=== PATIENT | female | born 2000 | race Caucasian/White ===

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

== ENCOUNTER 2020-09-04 16:33 | Emergency (ER) | payer OTHER ==
[~2020-09-04] VITALS: Ht 160 cm; Wt 105.7 kg
[2020-09-04] MEDS ORDERED: LIDOCAINE 1% 5ML-MPF INJ STA (17:26)
== END 2020-09-04 19:05 | disposition home or self-care (01) ==
LOC: ER 17:04
DX: L02.214 Cutaneous abscess of groin (principal); E28.2 Polycystic ovarian syndrome
CPT/HCPCS: 99283

== ENCOUNTER 2021-02-13 12:03 | Emergency (ER) | payer OTHER ==
[~2021-02-13] VITALS: Ht 160 cm; Wt 105.7 kg
[2021-02-13] MEDS ORDERED: KETOROLAC TROMETHAMINE 30 MG/ML VIAL IM STA (12:38)
[2021-02-13] MEDS ORDERED: GUAIFENESIN 600MG/DEXTROMETHORPHAN 30MG TABSR PO STA (12:38)
[2021-02-13] MEDS ORDERED: ACETAMINOPHEN 325 MG TAB PO ONE (12:45)
[2021-02-13 16:30] VITALS: BP 136/67
== END 2021-02-13 16:30 | disposition home or self-care (01) ==
LOC: ER 12:38
DX: J06.9 Acute upper respiratory infection, unspecified (principal); E28.2 Polycystic ovarian syndrome
CPT/HCPCS: 71046; 81025; 99283

== ENCOUNTER 2022-03-18 14:32 | Emergency (ER) | payer BC, OTHER ==
[~2022-03-18] VITALS: Ht 160 cm; Wt 115.7 kg
[2022-03-18] MEDS ORDERED: IBUPROFEN 600 MG TAB PO STA (14:37)
== END 2022-03-18 16:46 | disposition home or self-care (01) ==
LOC: ER 14:38
DX: S93.492A Sprain of other ligament of left ankle, initial encounter (principal); W01.0XXA Fall on same level from slipping, tripping and stumbling without subsequent striking against object, initial encounter; Y93.01 Activity, walking, marching and hiking; Y92.89 Other specified places as the place of occurrence of the external cause; E28.2 Polycystic ovarian syndrome
CPT/HCPCS: 99283

== ENCOUNTER 2023-01-04 10:46 | Emergency (ER) | payer SELFPAY ==
[~2023-01-04] VITALS: Ht 160 cm; Wt 118.4 kg
[2023-01-04] MEDS ORDERED: KETOROLAC TROMETHAMINE 30 MG/ML VIAL ONE (11:21)
[2023-01-04] MEDS ORDERED: ONDANSETRON HCL INJ 2MG/ML 2ML 2 MG/ML VIAL ONE (11:21)
[2023-01-04] MEDS ORDERED: SODIUM CHLORIDE 0.9% 1000ML 1,000 ML ONE (11:28)
[2023-01-04] MEDS ORDERED: BACTRIM DS TAB1 EACH PO (13:15)
[2023-01-04] MEDS ORDERED: CEFTRIAXONE 1 GM VIAL ONE (13:25)
[2023-01-04 13:42] VITALS: O2SAT 99
== END 2023-01-04 13:42 | disposition home or self-care (01) ==
LOC: FSED 11:07
DX: N39.0 Urinary tract infection, site not specified (principal); R11.2 Nausea with vomiting, unspecified; E28.2 Polycystic ovarian syndrome; I10 Essential (primary) hypertension; K76.0 Fatty (change of) liver, not elsewhere classified
CPT/HCPCS: 74176; 80048; 80076; 81003; 81025; 85025; 96374; 96375; 99284; J0696; J1885; J2405; J7030